=== PATIENT | male | born 1990 | race Caucasian/White ===

== ENCOUNTER → 2018-05-03 | Outpatient (CLI) | payer OTHER ==
[~2018-05-03] MED LIST: AMOXICILLIN 50500 MG PO; CLEOCIN HCL300 MG PO; KLONOPIN 0.5MG0.5 MG PO; LEXAPRO20 MG PO; NO HOME MEDICATIONS; ZOFRAN ODT4 MG PO
== END ==
LOC: COL.RAD 07:59
DX: Z13.6 Encounter for screening for cardiovascular disorders (principal); R91.8 Other nonspecific abnormal finding of lung field
CPT/HCPCS: Q9967